=== PATIENT | female | born 1955 | race Caucasian/White ===

== ENCOUNTER 2016-11-14 06:29 | Inpatient (IN) | payer BC ==
[2016-10-20 12:55] VITALS: BMI 28.0
--- NOTE | 2016-10-20 13:22 | PAT Medication Instructions ---
Service Date Oct 20, 2016. Current Home Medication List Acetaminophen (Tylenol), 1,000 MG PO Q6 PRN for Pain Amlodipine (Norvasc), 5 MG PO QAM Aspirin (Aspirin Ec), 81 MG PO QAM Diclofenac (Voltaren), 75 MG PO QAM Ergocalciferol (Vitamin D 88031 Unit), 1 CAP PO WK Levothyroxine Sodium (Levothyroxine Sodium), 1 TAB PO QAM Simvastatin (Zocor), 20 MG PO QPM Medication Instructions For Your Scheduled Surgery - Check with surgeon for instructions: Diclofenac (Voltaren), 75 MG PO QAM - Hold the following medications the morning of surgery: Ergocalciferol (Vitamin D 49491 Unit), 1 CAP PO WK - Take the following medications the morning of surgery with a sip of water: Levothyroxine Sodium (Levothyroxine Sodium), 1 TAB PO QAM Aspirin (Aspirin Ec), 81 MG PO QAM (unless otherwise per surgeon) Acetaminophen (Tylenol), 1,000 MG PO Q6 PRN for Pain Amlodipine (Norvasc), 5 MG PO QAM - Take the following medications as scheduled the night before surgery: Simvastatin (Zocor), 20 MG PO QPM Acetaminophen (Tylenol), 1,000 MG PO Q6 PRN for Pain If you have any questions please call us at [phone] (Adelia Green PA-C) or [phone] or [phone]
--- NOTE | 2016-10-20 14:02 | DIAGNOSTIC IMAGING REPORT ---
CHEST PREADMISSION(PA/LAT) CLINICAL HISTORY: Preoperative evaluation. COMPARISON STUDY: No previous studies for comparison. FINDINGS: There is mild S-shaped curvature of the thoracolumbar spine. Lung volumes are normal. There is no consolidation to suggest pneumonia. Minimal bibasilar opacities favor atelectasis. Cardiac size is normal. There is no evidence of pulmonary edema. IMPRESSION: 1. No acute cardiopulmonary findings. 2. Mild S-shaped scoliosis of the thoracolumbar spine. Electronically signed by: Levy Ritter M.D. 10/20/2016 2:00 PM Dictated Date/Time: 10/20/2016 1:59 PM
[2016-10-20 14:07] LABS: BASO % 0.7 %; BASO ABS # 0.05 K/uL (0-0.2); COMPLETE YES; EOS % 3.6 %; HEMATOCRIT 37.4 % (37-47); IG% 0.3 %; LYMPH % 13.4 %; LYMPH ABS # 0.94 K/uL (1.2-3.4); MEAN CORPUSCULAR HEMOGLOBIN 30.6 pg (25-34); MEAN CORPUSCULAR HGB CONC 32.9 g/dl (32-36); MEAN PLATELET VOLUME 9.9 fL (7.4-10.4); MONO % 8.4 %; NEUT % 73.6 %; PLATELET COUNT 355 K/uL (130-400); RED BLOOD COUNT 4.02 M/uL (4.2-5.4); WHITE BLOOD COUNT 7.04 K/uL (4.8-10.8)
[2016-10-20 14:23] LABS: URINE APPEARANCE CLOUDY (CLEAR); URINE BILIRUBIN NEG (NEG); URINE COLOR DK YELLOW; URINE EPITHELIAL CELL AUTO >30 /lpf (0-5); URINE NITRITE NEG (NEG); URINE SPECIFIC GRAVITY 1.033 (1.000-1.030); UROBILINOGEN NEG (NEG)
[2016-10-20 14:29] LABS: BUN/CREATININE RATIO 25.9 (10-20); CALCIUM 10.1 mg/dl (8.5-10.1); CREATININE 0.85 mg/dl (0.60-1.20); POTASSIUM 4.3 mmol/L (3.5-5.1)
[2016-10-20 14:31] LABS: MANUAL MICROSCOPIC REQUIRED? NO; REVIEW REQ? YES
[2016-10-20 14:58] LABS: URINE MUCUS PRESENT (NONE PRSENT)
[2016-11-14] VITALS (12 sets, daily range): BP systolic 104–163; BP diastolic 64–87; PULSE 53–71; TEMP 34.8–36.5; O2SAT 96–100; Ht 167.6 cm; Wt 80.6 kg
[~2016-11-14] VITALS: Ht 167.6 cm; Wt 80.6 kg
[~2016-11-14 06:29] MED LIST: ACET-1256 PO; AMLO-110 PO; ASPI81TA28 PO; CEFAZOLIN 2000 MG/60 ML D5W 60 ML IV SCH; DICL-201 PO; ERGO500037 PO; LACTATED RINGER'S 1000ML IV SCH; LEVO112T4 PO; SIMV20TA2 PO
[2016-11-14] MEDS ORDERED: FENTANYL CITRATE INJ 50 MCG/1 ML 2 ML VIAL ONE (07:02)
[2016-11-14] MEDS ORDERED: MIDAZOLAM HCL 1 MG/ML 2ML VIAL ONE (07:02)
[2016-11-14] MEDS ORDERED: BUPIVACAINE/EPINEPHRINE 0.5% MPF 1:200,000 30 ML VIAL ONE (07:04)
[2016-11-14] MEDS ORDERED: SODIUM CHLORIDE 0.9% PF 50 ML VIAL ONE (07:04)
--- NOTE | 2016-11-14 07:28 | History & Physical Bridge Note ---
H&P Re-Evaluation Bridge Note: I have examined the patient, reviewed the History & Physical and in the interval since the performance of the History & Physical I have noted the following changes of clinical significance: No changes noted
--- NOTE | 2016-11-14 07:30 | History and Physical ---
History & Physical Date Nov 14, 2016. Chief Complaint back and leg pain History of Present Illness The patient is a 61 year old female with complaints of Additional History Hepatic Disease: No Endocrine Disorder: No Kidney Disease: No Hypertension: No Heart Disease: No Bleeding Tendencies: No Infectious Diseases: No Allergies Coded Allergies: Amoxicillin (Verified Adverse Reaction, Unknown, YEAST INFX, 11/14/16) Clavulanic Acid (Verified Adverse Reaction, Unknown, YEAST INFX, 11/14/16) Home Medications Scheduled Amlodipine (Norvasc), 5 MG PO QAM Aspirin (Aspirin Ec), 81 MG PO QAM Diclofenac (Voltaren), 75 MG PO QAM Ergocalciferol (Vitamin D 20923 Unit), 1 CAP PO WK Levothyroxine Sodium (Levothyroxine Sodium), 1 TAB PO QAM Simvastatin (Zocor), 20 MG PO QPM Scheduled PRN Acetaminophen (Tylenol), 1,000 MG PO Q6 PRN for Pain Physical Examination Skin: warm/dry, no rash Eyes: normal inspection, EOMI, sclerae normal ENT: normal ENT inspection, pharynx normal Head: normocephalic, atraumatic Neck: supple, no adenopathy, trachea midline Respiratory/Chest: lungs clear, normal breath sounds, no respiratory distress Cardiovascular: regular rate, rhythm, no edema, no murmur Abdomen / GI: normal bowel sounds, non tender Back: normal inspection Extremities: normal inspection, normal range of motion Neurologic/Psych: no motor/sensory deficits, alert, normal reflexes, oriented x 3 Diagnosis spinal stenosis Plan of Treatment decompression fusion L4-S1
[2016-11-14] MEDS ORDERED: LIDOCAINE HCL 2% 2 ML VIAL (20MG/ML) ONE (08:07)
[2016-11-14] MEDS ORDERED: GLYCOPYRROLATE INJ 0.2 MG/ML VIAL ONE (08:07)
[2016-11-14] MEDS ORDERED: LARYING-O-JET KIT (LTA) EXT ONE ×2 (08:07)
[2016-11-14] MEDS ORDERED: NEOSTIGMINE METHYLSULFATE 1 MG/ML 10ML VIAL ONE (08:07)
[2016-11-14] MEDS ORDERED: EpHEDrine SULFATE 50MG/5ML SYR ONE (08:07)
[2016-11-14] MEDS ORDERED: PROPOFOL IV EMULSION 10 MG/ML 20 ML VIAL IV ONE (08:07)
[2016-11-14] MEDS ORDERED: DEXAMETHASONE SOD INJ 4 MG/ML VIAL ONE (08:07)
[2016-11-14] MEDS ORDERED: ROCURONIUM BROMIDE 10 MG/ML 5 ML VIAL ONE (08:07)
[2016-11-14] MEDS ORDERED: ONDANSETRON INJ 2 MG/ML 2 ML VIAL ONE (08:07)
[2016-11-14] MEDS ORDERED: HYDROmorphone INJ 2 MG/ML SYR/VIAL ONE (08:10)
[2016-11-14] MEDS ORDERED: BUPIVACAINE/EPINEPHRINE 0.5% MPF 1:200,000 30 ML VIAL INJ ONE (08:13)
[2016-11-14] MEDS ORDERED: ATROPINE SULFATE 0.1 MG/ML 5ML SYR IV PRN (08:30)
[2016-11-14] MEDS ORDERED: EpHEDrine SULFATE INJ 50 MG/ML AMP IV PRN (08:30)
[2016-11-14] MEDS ORDERED: MoRPHine SULFATE 10 MG/ML CARP/VIAL IV PRN (08:30)
[2016-11-14] MEDS ORDERED: FENTANYL CITRATE INJ 50 MCG/1 ML 2 ML VIAL IV PRN (08:30)
[2016-11-14] MEDS ORDERED: ONDANSETRON INJ 2 MG/ML 2 ML VIAL IV PRN ×2 (08:30→10:00)
[2016-11-14] MEDS ORDERED: SODIUM CHLORIDE 0.9% 1000ML 1,000 ML IV SCH (09:52)
--- NOTE | 2016-11-14 09:52 | [facility] Post Operative Brief Note ---
Immediate Operative Summary Operative Date Nov 14, 2016. Pre-Operative Diagnosis Spinal Stenosis Post-Operative Diagnosis Same as preop diagnosis Procedure(s) Performed L4-5, L5-S1 Decompression, Fusion with Instrumentation, Interbody Fusion with Interbody Cage application at L4-5, L5-S1, Bone Morphogenetic Protein, Use of Majo Allograft Surgeon Dr. Lev Jauregui Life Skills Instructor Surgeon(s) Julian Valencia), PA-C Estimated Blood Loss 190ml Findings stenosis/spondy Specimens None per surgeon
[2016-11-14] MEDS ORDERED: BACITRACIN 50000 UNIT VIAL IR ONE (09:53)
[2016-11-14] MEDS ORDERED: FLOSEAL HEMOSTATIC MATRIX 10ML TOP ONE (09:53)
[2016-11-14] MEDS ORDERED: METOCLOPRAMIDE HCL INJ 5 MG/ML 2 ML VIAL IV PRN (10:00)
[2016-11-14] MEDS ORDERED: BISACODYL 10 MG SUPP PR PRN (10:00)
[2016-11-14] MEDS ORDERED: LORAZEPAM 0.5 MG TAB PO PRN (10:00)
[2016-11-14] MEDS ORDERED: NALOXONE HCL 0.4 MG/1 ML VIAL/CARP IV PRN ×2 (10:00)
[2016-11-14] MEDS ORDERED: ALUMINUM/MAGNESIUM SUSP 30 ML UDC PO PRN (10:00)
[2016-11-14] MEDS ORDERED: PROMETHAZINE HCL INJ 12.5 MG in SODIUM CHLORIDE 0.9% 50ML 50 ML IV PRN (10:00)
[2016-11-14] MEDS ORDERED: SOD PHOSPHATE/SOD BIPHOSPHATE ENEMA 132 ML BTL PR PRN (10:00)
[2016-11-14] MEDS ORDERED: FAMOTIDINE 20 MG TAB PO PRN (10:00)
[2016-11-14] MEDS ORDERED: hydrOXYzine HCL 25 MG TAB PO PRN (10:00)
[2016-11-14] MEDS ORDERED: LORAZEPAM INJ 0.5 MG in SYRINGE 0 ML IV PRN (10:00)
[2016-11-14] MEDS ORDERED: DO NOT ADMINISTER FLU VACCINE PRN ×3 (10:00)
[2016-11-14] MEDS ORDERED: ACETAMINOPHEN IV 100 ML IV PRN (10:00)
[2016-11-14] MEDS ORDERED: MAGNESIUM HYDROXIDE SUSP 30 ML UDC PO PRN (10:00)
[2016-11-14] MEDS ORDERED: DO NOT ADMINISTER PNEUMOCOCCAL VACCINE PRN ×2 (10:00)
[2016-11-14] MEDS ORDERED: ACETAMINOPHEN 500 MG TAB PO PRN (10:00)
--- NOTE | 2016-11-14 10:04 | DIAGNOSTIC IMAGING REPORT ---
INTRAOPERATIVE FLUOROSCOPIC IMAGES OF THE LUMBAR SPINE CLINICAL HISTORY: L4-S1 DECOMPRESSION/FUSION/INTERBODY. COMPARISON STUDY: No previous studies for comparison. Fluoroscopy time: 20 seconds. FINDINGS: 2 fluoroscopic images demonstrate L4-L5 and L5-S1 discectomies with interbody spacer placement. There is a posterior decompression with bilateral pedicle screws at the L4, L5 and S1 levels. Interconnecting rods are present. There is slight anterolisthesis of L5 on S1. IMPRESSION: Expected findings following L4-L5 and L5-S1 discectomies and L4-S1 bilateral pedicle screw fusion. Electronically signed by: Levy Ritter M.D. 11/14/2016 10:03 AM Dictated Date/Time: 11/14/2016 10:01 AM
[2016-11-14] MEDS ORDERED: HYDROmorphone HCL 0.5MG/ML 50 ML CASSETTE ONE (10:11)
--- NOTE | 2016-11-14 10:53 | OPERATIVE REPORT ---
DATE OF OPERATION: 11/14/2016 PREOPERATIVE DIAGNOSES: Spinal stenosis, spondylolisthesis. POSTOPERATIVE DIAGNOSIS: Same. PROCEDURE PERFORMED: 1. Lumbar decompression, medial facetectomy, and foraminotomy L3-4, L4-5, L5-S1. 2. Posterior spinal fusion L4-5, L5-S1. 3. Placement posterior segmental instrumentation using Orthros rods and screws L4-5, L5-S1. 4. Interbody fusion L4-L5 and L5-S1. 5. Placement of PEEK cage 11 x 26 at L4-L5 and 11 x 22 at L5-S1. 6. Placement of locally harvested morcellized autograft in posterior lateral gutters. 7. Placement of Infuse collagen sponge combined with Mastergraft in the posterior lateral gutters and Majo bone grafting in interbody space. SURGEON: Dr. Lev Jauregui. FISHERIES SPECIALIST: MILDRED Ruth . ANESTHESIA: General. DISPOSITION: The patient awakened and taken to PACU in stable condition. HISTORY OF PATIENT'S PROBLEMS: This is a 61-year-old female that presents with above-mentioned diagnosis. After failing an extensive course of nonoperative care, elected to undergo the above-mentioned procedure. Risks, benefits, pros, cons, and alternatives were outlined in detail preoperatively. PROCEDURE: The patient was met preoperatively, case discussed and all questions were addressed. At that point the patient was taken back to the operative suite and after undergoing successful general intubation via department of anesthesia was placed in prone position on Maykel table on top of Brandon frame. All bony prominences were well padded and the eyes were inspected to ensure there was no external pressure placed upon them. At this point, lumbar spine was prepped and draped in normal sterile fashion. Sharp dissection with the assistance of Bovie cautery performed down to and exposing the lamina and transverse processes of 4, 5 and sacral ala bilaterally. From a caudal to cephalad fashion, a complete laminectomy of L5, L4, partial laminectomy of L3 was performed addressing severe lateral recess foraminal disease. Obvious anterolisthesis appreciated with facet hypertrophy. After complete decompression, pedicle screws were then placed in L4-5 and S1 levels bilaterally with assistance of fluoroscopy and appropriate size emma provisionally placed. Through a transforaminal approach on the right, a complete discectomy of L5-S1 was performed, endplates curetted to subcortical bleeding bone and a 11 x 22 mm PEEK cage filled with Majo bone grafting tapped into position. I then proceeded to 4-5 and again through a transforaminal approach on the right, a complete discectomy was performed, endplates curetted to subcortical bleeding bone and an 11 x 26 mm PEEK cage filled with Majo bone grafting tapped into position. The rods were then locked into final position bilaterally and transverse processes of 4-5 and sacral ala burred to subcortical bone. Infuse collagen sponge combined with Mastergraft and locally harvested morcellized autograft was placed in the posterior lateral gutters. A 7 flat JAIRO drain was inserted. Incision was closed with 1-0 Vicryl in the fascia, 2-0 Vicryl subcutaneously, 4-0 Monocryl for final skin closure. Steri-Strips and sterile dressing placed. The patient was awakened and taken to PACU in stable condition. Due to the complex nature of the procedure, the entire surgery was performed with the operational assistance of MILDRED Ruth. The home care assistant, under direct supervision, was involved in the actual performance of all aspects of the surgical procedure including hemostasis, tissue retraction and incision, instrument management, patient positioning, and wound closure. I attest to the content of the Intraoperative Record and any orders documented therein. Any exceptio ns are noted below.
--- NOTE | 2016-11-14 10:54 | Anesthesiology Progress Note ---
Anesthesia Post Op Note Date & Time Nov 14, 2016 at 10:54 Vital Signs Pain Intensity: 3 Vital Signs Past 12 Hours Date Time Temp Pulse Resp B/P Pulse Ox O2 Delivery O2 Flow Rate FiO2 11/14/16 10:48 36.5 11/14/16 10:45 56 14 11/14/16 10:45 56 14 93 11/14/16 10:43 141/74 11/14/16 10:40 64 13 94 11/14/16 10:40 59 13 11/14/16 10:38 146/80 11/14/16 10:35 59 16 95 11/14/16 10:35 60 16 11/14/16 10:33 149/77 11/14/16 10:30 60 17 11/14/16 10:30 60 17 97 11/14/16 10:28 150/79 11/14/16 10:25 51 14 11/14/16 10:25 56 14 90 11/14/16 10:23 158/78 11/14/16 10:20 61 16 11/14/16 10:20 61 16 98 11/14/16 10:18 162/86 11/14/16 10:15 67 11 98 11/14/16 10:15 67 11 11/14/16 10:13 130/79 11/14/16 10:10 63 20 100 11/14/16 10:10 63 20 11/14/16 10:07 134/81 11/14/16 10:05 36.3 68 14 134/81 99 Mask 10 11/14/16 07:00 36.5 61 18 163/87 96 Room Air Notes Mental Status: alert / awake / arousable, participated in evaluation Pt Amnestic to Procedure: Yes Nausea / Vomiting: adequately controlled Pain: adequately controlled Airway Patency, RR, SpO2: stable & adequate BP & HR: stable & adequate Hydration State: stable & adequate Anesthetic Complications: no major complications apparent
[2016-11-14] MEDS: LACTATED RINGER'S 1000ML 1,000 ML IV SCH ×2 (12:21→19:48)
[2016-11-14] MEDS: DEXAMETHASONE INJ 6 MG in SYRINGE 0 ML IV SCH ×2 (13:28→21:31)
[2016-11-14] MEDS ORDERED: CLINDAMYCIN IV 600 MG in DEXTROSE 5% ADD-VANTAGE 50ML 50 ML IV SCH (14:00)
[2016-11-14] MEDS: HYDROmorphone HCL 0.5MG/ML 50 ML CASSETTE IV PRN ×2 (14:46→22:45)
[2016-11-14] MEDS ORDERED: RXC5 PO (15:20)
--- NOTE | 2016-11-14 15:20 | Discharge Instructions ---
Discharge Instructions Admission Reason for Admission: Lumbar Spinal Stenosis Discharge Discharge Diagnosis / Problem: stenosis Discharge Goals Goal(s): Improve function Activity Recommendations Activity Limitations: per Instructions/Follow-up section . Instructions / Follow-Up Instructions / Follow-Up ACTIVITY RECOMMENDATIONS: SELF CARE INSTRUCTIONS AFTER THORACIC/LUMBAR FUSIONS 1. You may walk to your tolerance. It is good exercise for your legs and back. Expect some back and intermittent leg aches and pains. 2. You may perform "counter-top" level activities (make a sandwich, khadijah with a project, etc.). 3. No bending or lifting of more than 10 pounds or back twisting of any nature (roll like a log when turning in bed). 4. You may ride in a car for 20-30 minutes at a time. No driving until after your first visit with your doctor. 5. Frequent changes of position and restricting sitting to 30 minutes at a time will help limit the amount of back spasms and stiffness you may experience. 6. You may discontinue the use of ambulatory aids (cane, crutches, etc.) once your strength and confidence allow. 7. You may pricing analyst the shower and let water strike your incision when you arrive home at least once daily. Do not take a tub bath, sit in a hot tub or go into a swimming pool until after your first recheck in the office. SPECIAL CARE INSTRUCTIONS: VERY IMPORTANT TO READ AND REVIEW A. Your surgical incision has been closed with a cosmetic suture under the skin that will dissolve in about 6 weeks. In 14 days, you can use a pair of clean scissors and cut the suture that is left outside of the skin at the ends of your incision. 1. The small skin tapes can be removed 7 days after surgery if they have not fallen off by that point. 2. You may keep the wound open to air as much as possible to promote healing after post-op day number 5 unless told otherwise by your doctor. 3. If you think the wound looks like it is becoming infected (redness or worsening drainage) and/or you are experiencing fever, chill or worsening back pain and muscle spasms, contact the office so that we may evaluate you as soon as possible. B. Complications are uncommon, but please contact us if you have any signs or symptoms of: 1. wound infection (fever higher than 102.5 degrees F, redness, separation of wound, drainage, or increasing pain from the incision) 2. blood clots in legs (pain, swelling, redness and warmth in legs) 3. urinary tract infection (fever higher than 102.5 degrees F, burning upon urination or increased frequency of urination) 4. nerve problems (inability to walk on your toes or heels, numbness, loss of bowel or bladder control) 5. any other symptoms that concern you C. Please call the office at if you have any concerns or questions about your operation or recovery. D. No smoking! Smoking drastically decreases the chance of a solid fusion. E. Do not take any anti-inflammatory medications (Indocin, Advil, Motrin, Aspirin, Naprosyn, etc.) as these may inhibit the chance of a solid fusion. Tylenol is okay to take for pain. MANAGING PAIN AFTER SPINAL SURGERY 1. Narcotic medication is intended for short-term use and will be provided for surgical pain. Surgical pain usually lasts for a period of 4-6 weeks. Narcotic medication includes Percocet, Vicodin, Darvocet, Tylenol #3 or Lortab. 2. Longer-term pain is more appropriately treated with non-narcotic medication such as Tylenol ES. 3. Muscle spasm is not appropriately treated with narcotics. Muscle relaxers such as Soma, Flexeril or Skelaxin can be used along with Tylenol ES. 4. Remember that we all live with some "aches and pains". This is not unusual or uncommon after an injury or as we get older. a. Back pain is expected and may include muscle spasms for 4 to 6 weeks after surgery. The pain should gradually improve. If the pain worsens for no apparent reason, please contact the office. b. Intermittent leg pain may also be experienced and should not be concerned about unless it worsens for no apparent reason. If so, please contact the office. 5. We will provide appropriate medication within the normal guidelines of their prescribed use. We will also be very cautious and aware of potential abuse and extended duration of patients' medication needs. a. Pain medications are for your comfort and to assist with sleep and rest so that the tissue can heal. They are not provided in order to return to normal activity and should not be used through the day. To do so or worsening pain at night can result from ongoing tissue damage and development of tolerance to the prescribed medicine. 6. Please allow 2-3 days to process refills. Prescriptions will not be mailed but must be picked up at the office. FOLLOW UP VISIT: Keep your scheduled follow-up appointment. Any questions, please call the office at . Current Hospital Diet Patient's current hospital diet: Regular Diet Discharge Diet Recommended Diet: Regular Diet Procedures Procedures Performed: L4-5, L5-S1 Decompression, Fusion with Instrumentation, Interbody Fusion with Interbody Cage application at L4-5, L5-S1, Bone Morphogenetic Protein, Use of Majo Allograft Pending Studies Studies pending at discharge: no Medical Emergencies . Who to Call and When: Medical Emergencies: If at any time you feel your situation is an emergency, please call 911 immediately. . Non-Emergent Contact Non-Emergency issues call your: Primary Care Provider . "Provider Documentation" section prepared by Lev Jauregui. VTE Core Measure Inpt VTE Proph given/why not?: Venita Goncalves, [facility]
[2016-11-14] MEDS: CLINDAMYCIN IV 600 MG in DEXTROSE 5% ADD-VANTAGE 50ML 50 ML IV SCH (16:30)
[2016-11-14] MEDS: SIMVASTATIN 20 MG TAB PO SCH (20:51)
[2016-11-14] MEDS: DOCUSATE SODIUM/SENNA 50/8.6MG TAB PO SCH (20:51)
[2016-11-15] MEDS: CLINDAMYCIN IV 600 MG in DEXTROSE 5% ADD-VANTAGE 50ML 50 ML IV SCH (00:40)
[2016-11-15] MEDS: LACTATED RINGER'S 1000ML 1,000 ML IV SCH (01:53)
[2016-11-15 03:35] VITALS: BP 114/73; PULSE 64; TEMP 36.4; O2SAT 98
[2016-11-15 05:58] LABS: COMPLETE YES; HEMATOCRIT 30.8 % (37-47); IG% 0.2 %; LYMPH % 4.1 %; LYMPH ABS # 0.46 K/uL (1.2-3.4); MEAN CELL VOLUME 91.9 fL (80-100); MEAN CORPUSCULAR HEMOGLOBIN 29.3 pg (25-34); MEAN CORPUSCULAR HGB CONC 31.8 g/dl (32-36); MEAN PLATELET VOLUME 9.8 fL (7.4-10.4); MONO % 3.3 %; NEUT % 92.4 %; PLATELET COUNT 329 K/uL (130-400); RED BLOOD COUNT 3.35 M/uL (4.2-5.4); WHITE BLOOD COUNT 11.15 K/uL (4.8-10.8)
[2016-11-15] MEDS ORDERED: DC PCA PRN (06:00)
[2016-11-15] MEDS ORDERED: HYDROmorphone INJ 0.5 MG/0.5 ML SYR IV PRN (06:00)
[2016-11-15] MEDS: DEXAMETHASONE INJ 6 MG in SYRINGE 0 ML IV SCH (06:08)
[2016-11-15] MEDS: LEVOTHYROXINE 112 MCG TAB PO SCH (06:08)
[2016-11-15] MEDS ORDERED: NURSING VERBAL MED ORDER ONE (06:15)
[2016-11-15 06:27] LABS: BUN/CREATININE RATIO 15.6 (10-20); CALCIUM 9.2 mg/dl (8.5-10.1); CREATININE 0.89 mg/dl (0.60-1.20); POTASSIUM 4.1 mmol/L (3.5-5.1)
[2016-11-15 07:05] VITALS: BP 103/63; PULSE 64; TEMP 36.6; O2SAT 97
[2016-11-15] MEDS: AMLODIPINE BESYLATE 5 MG TAB PO SCH (08:46)
[2016-11-15] MEDS: ASPIRIN 81 MG ECTAB PO SCH (08:46)
--- NOTE | 2016-11-15 11:21 | PROGRESS NOTE ---
DATE: 11/15/2016 DATE: 11/15/2016. SUBJECTIVE: Back pain is controlled. Leg pain improved. Vital signs stable. T-max 36.6. JAIRO drained 130 mL. Hematocrit this a.m. is 30.8. OBJECTIVE: On exam the patient is in chair at bedside. Demonstrates good strength to testing. ASSESSMENT: Status post lumbar decompression and fusion. PLAN: At this time, will initiate physical therapy, advance her bowel regimen and anticipate home tomorrow or .
[2016-11-15 15:19] VITALS: BP 144/83; PULSE 65; TEMP 36.7; O2SAT 95
[2016-11-15] MEDS: DOCUSATE SODIUM/SENNA 50/8.6MG TAB PO SCH (21:14)
[2016-11-15] MEDS: SIMVASTATIN 20 MG TAB PO SCH (21:14)
[2016-11-15 22:47] VITALS: BP 138/81; PULSE 57; TEMP 36.4; O2SAT 95
[2016-11-15] MEDS: OXYCODONE HCL IR 5 MG TAB (IMMEDIATE RELEASE) PO PRN (23:40)
[2016-11-16] MEDS: LEVOTHYROXINE 112 MCG TAB PO SCH (05:42)
[2016-11-16] MEDS: POLYETHYLENE (MIRALAX) 17 GM PACK PO SCH ×2 (05:42→12:57)
[2016-11-16] MEDS: OXYCODONE HCL IR 5 MG TAB (IMMEDIATE RELEASE) PO PRN ×2 (07:33→11:22)
[2016-11-16 07:51] VITALS: BP 130/75; PULSE 66; TEMP 36.4; O2SAT 96
[2016-11-16 09:01] VITALS: O2SAT 95
[2016-11-16] MEDS: AMLODIPINE BESYLATE 5 MG TAB PO SCH (09:20)
[2016-11-16] MEDS: ASPIRIN 81 MG ECTAB PO SCH (09:20)
--- NOTE | 2016-11-16 13:35 | DISCHARGE SUMMARY ---
PRINCIPAL DIAGNOSIS: Spinal stenosis. HOSPITAL COURSE FOLLOWS: On 11/14/2015 patient underwent lumbar decompression and fusion, tolerated this well and taken to the orthopedic floor postoperatively. Postop day #1, she was up and ambulatory. Leg pain improved. Progressed to postop day #2. JAIRO drain decreased appropriately, pain well controlled. Subsequently discharged home. Discharge orders and instructions found on the chart for further review.
[2016-11-16 13:38] VITALS: BP 130/75; PULSE 66; TEMP 36.4; O2SAT 95
== END 2016-11-16 14:00 | disposition home or self-care (01) | DRG 460 ==
LOC: ENRESERVTM → ENRESERVDT → C.ACU 06:29 → C.3E 07:00
PROVIDERS: ADMIT Orthopaedic Surgery Orthopaedic Surgery of the Spine; ATTEND Orthopaedic Surgery Orthopaedic Surgery of the Spine
PROC: 0SG30AJ Fusion of Lumbosacral Joint with Interbody Fusion Device, Posterior Approach, Anterior Column, Open Approach (ICD-10-PCS; principal; 2016-11-14 07:30)
PROC: 0SG3071 Fusion of Lumbosacral Joint with Autologous Tissue Substitute, Posterior Approach, Posterior Column, Open Approach (ICD-10-PCS; principal; 2016-11-14 07:30)
PROC: 3E0U0GB Introduction of Recombinant Bone Morphogenetic Protein into Joints, Open Approach (ICD-10-PCS; principal; 2016-11-14 07:30)
PROC: 0ST40ZZ Resection of Lumbosacral Disc, Open Approach (ICD-10-PCS; principal; 2016-11-14 07:30)
PROC: 0SG0071 Fusion of Lumbar Vertebral Joint with Autologous Tissue Substitute, Posterior Approach, Posterior Column, Open Approach (ICD-10-PCS; principal; 2016-11-14 07:30)
PROC: 0SG00AJ Fusion of Lumbar Vertebral Joint with Interbody Fusion Device, Posterior Approach, Anterior Column, Open Approach (ICD-10-PCS; principal; 2016-11-14 07:30)
PROC: 01NB0ZZ Release Lumbar Nerve, Open Approach (ICD-10-PCS; principal; 2016-11-14 07:30)
PROC: 0ST20ZZ Resection of Lumbar Vertebral Disc, Open Approach (ICD-10-PCS; principal; 2016-11-14 07:30)
DX: M48.00 Spinal stenosis, site unspecified (principal); M43.10 Spondylolisthesis, site unspecified; M41.9 Scoliosis, unspecified; I10 Essential (primary) hypertension; E78.5 Hyperlipidemia, unspecified; E21.3 Hyperparathyroidism, unspecified; E06.3 Autoimmune thyroiditis; Z79.82 Long term (current) use of aspirin; Z79.899 Other long term (current) drug therapy; Z87.891 Personal history of nicotine dependence; Z79.1 Long term (current) use of non-steroidal anti-inflammatories (NSAID)